=== PATIENT | male | born 1945 | race Caucasian/White ===

== ENCOUNTER 2016-10-06 08:00 | Day surgery (SDC) | payer OTHER ==
[2016-10-06] MEDS ORDERED: ceFAZolin 2 GM/DEXTROSE 100 ML IV ONE (08:02)
[2016-10-06] MEDS ORDERED: NS 1,000 ML IV ONE (08:02)
[2016-10-06] MEDS ORDERED: diphenhydrAMINE 25 MG CAP PO ONE (08:02)
[2016-10-06] MEDS ORDERED: DIAZEPAM 5 MG TAB PO ONE (08:02)
[2016-10-06] MEDS ORDERED: BACITRACIN IRRIGATION/NS 50,000 UNITS/1,000 ML BTL IRR ONE (08:02)
--- NOTE | 2016-10-06 08:27 | CPEKG ---
Heart Rate: 81 RR Interval: 741 P-R Interval: 196 QRSD Interval: 170 QT Interval: 472 QTC Interval: 548 P Carlin: 0 QRS Carlin: -85 T Wave Carlin: 80 EKG Severity - ABNORMAL ECG - EKG Impression: ATRIAL-SENSED VENTRICULAR-PACED COMPLEXES Electronically Signed By: Alverto Robles 06-Oct-2016 10:52:44
[2016-10-06 08:46] LABS: ADD DIFF? NO; ADD MORPH? NO; ADD SCAN? NO; ATYPICAL LYMPHOCYTE FLAG 20 (0-99); FRAGMENT RBC FLAG 0 (0-99); HEMATOCRIT 48.2 % (40.0-51.0); LEFT SHIFT FLG 0 (0-99); LIPEMIA HEMOLYSIS FLAG 80 (0-99); MEAN CELL HEMOGLOBIN 31.7 pg (27.9-34.1); MEAN CELL HEMOGLOBIN CONCENTR. 33.2 g/dL (32.4-36.7); MEAN CELL VOLUME 95.6 fL (81.5-99.8); MEAN PLATELET VOLUME 10.4 fL (8.7-11.7); PLATELET CLUMPS FLAG 0 (0-99); PLATELET COUNT 119 10^3/uL (150-400); RED BLOOD CELL COUNT 5.04 10^6/uL (4.40-6.38); RED CELL DISTRIBUTION WIDTH 12.8 % (11.5-15.2)
[2016-10-06] MEDS ORDERED: MIDAZOLAM 2 MG/2 ML VIAL ONE ×2 (08:53→09:55)
[2016-10-06] MEDS ORDERED: LIDO/EPI 1% **for epidural** 30 ML SDV ONE (08:53)
[2016-10-06] MEDS ORDERED: BUPIVACAINE 0.5% 30 ML SDV ONE (08:53)
[2016-10-06] MEDS ORDERED: LIDOCAINE 1% 30 ML SDV ONE ×2 (08:53→09:18)
[2016-10-06] MEDS ORDERED: fentaNYL 100 MCG/2 ML INJ ONE (08:53)
[2016-10-06 08:55] LABS: ANION GAP 10 mEq/L (8-16); CALCIUM 9.5 mg/dL (8.5-10.4); CARBON DIOXIDE 26 mEq/l (22-31); CHLORIDE 110 mEq/L (97-110); CREATININE 1.1 mg/dL (0.7-1.3); GLOMERULAR FILTRATION RATE > 60; GLUCOSE 102 mg/dL (70-100); POTASSIUM 4.3 mEq/L (3.5-5.2); SODIUM 146 mEq/L (134-144)
[2016-10-06 08:56] LABS: PROTIME(PATIENT) 13.1 SEC (12.0-15.0)
[2016-10-06] MEDS ORDERED: ATROPINE SULFATE 1 MG/10 ML SYR ONE (09:49)
--- NOTE | 2016-10-06 11:32 | CPEKG ---
Heart Rate: 63 RR Interval: 952 QRSD Interval: 134 QT Interval: 520 QTC Interval: 533 P Daphne: 0 QRS Daphne: 23 T Wave Daphne: 238 EKG Severity - ABNORMAL ECG - EKG Impression: VENTRICULAR-PACED COMPLEXES EKG Impression: Atrial sensing seen at beginning of tracing, no atrial activity seen in the EKG Impression: latter half of the tracing Electronically Signed By: Alverto Robles 06-Oct-2016 11:45:01
--- NOTE | 2016-10-06 16:32 | CPIP ---
[f rep st] INVASIVE CARDIAC PROCEDURE DATE OF PROCEDURE: 10/06/2016 PROCEDURE: Pacemaker generator change. INDICATIONS: The patient is 70 years old. He has known history of complete heart block. His curren t existing pacemaker was implanted initially in 1999. Subsequent generator change was performed in 2 . His current device is at elective replacement indicator. He is pacemaker-dependent. TECHNIQUE: Following informed consent and in the fasting state, the patient was brought to the [facility] catheterization laboratory. His right groin was prepped and draped in usual sterile fashion. 2% lidocaine was infiltrated in the skin overlying the right femoral vein. Using the modified Seldinger technique, access was gained to the right femoral vein. A 6-Malawian safe sheath was placed. Under fluoroscopic guidance, a 5-Malawian pacing wire was advanced into the right ventricle. The wire was tested. There were adequate capture and sensing thresholds. Subsequently, this wire was secured into place with Tegaderm. At this point, the table was broken down again, and the left chest was prepped and draped in a steril e fashion. 2% lidocaine was infiltrated into the skin overlying the existing pacemaker. Using a #10 blade, a 3 cm incision was made overlying the existing pacemaker. Using blunt sharp dissection, the capsule was identified. This was opened sharply. Bluntly, the pacemaker was freed from the capsule and delivered from the pocket. Both leads were disconnected and independently tested. The pocket w as then irrigated. The device was then brought to the field. All leads were fixed according to cotton converter guidelines. The device and the redundant portions of all leads were then placed back in the pocket. The pocket was then closed in 3 layers, initially using 2 layers of interrupted suture with 2-0 and 3 -0 Vicryl and finally, running StrataFix for the skin. Under fluoroscopic guidance, the temporary pa cemaker was then removed. The sheath will be removed in the CVC. COMPLICATIONS: None. DEVICE INFORMATION: The existing leads were implanted on September 08, 1999. The ventricular lead is a Biotronik SX53 model #366083, serial #[id number]. The atrial lead is a Biotronik RX45, model #442976, serial #[id number]. In the ventricle, capture was 0.6 V at 0.4 milliseconds with lead impedance of 11 20 ohms and no sensed R waves. In the atrium, sensed P waves were 3.2 mV. Lead impedance was low at 327 ohms. Capture was not successful. DISPOSITION: The patient will be transferred to the CVC. He will be recovered there. His device is currently programmed VDI. /[id number]/MODL
== END 2016-10-06 15:30 | disposition home or self-care (01) ==
LOC: FCATH 08:00
PROVIDERS: ATTEND Internal Medicine Cardiovascular Disease
PROC: 0JH63PZ Insertion of Cardiac Rhythm Related Device into Chest Subcutaneous Tissue and Fascia, Percutaneous Approach (ICD-10-PCS; principal; 2016-10-06)
PROC: 0JPT3PZ Removal of Cardiac Rhythm Related Device from Trunk Subcutaneous Tissue and Fascia, Percutaneous Approach (ICD-10-PCS; principal; 2016-10-06)
DX: Z45.010 Encounter for checking and testing of cardiac pacemaker pulse generator [battery] (principal); I44.2 Atrioventricular block, complete; I25.10 Atherosclerotic heart disease of native coronary artery without angina pectoris; I10 Essential (primary) hypertension; E78.00 Pure hypercholesterolemia, unspecified
CPT/HCPCS: J0461; J0690; J2250; J3010